=== PATIENT | male | born 1960 | race Caucasian/White ===

== ENCOUNTER → 2023-02-02 | Day surgery (SDC) | payer OTHER ==
[2023-01-31 15:19] LABS: BASOPHILS # (AUTO) 0.1 (0.0-0.1); BASOPHILS % 0.4 % (0.0-1.0); EOSINOPHILS % 0.2 % (0.0-6.0); HEMATOCRIT 33.4 % (38.2-49.6); HEMOGLOBIN 10.3 g/dL (14.0-18.0); LYMPHOCYTES # (AUTO) 1.2 (1.0-3.2); LYMPHOCYTES % 9.5 % (18.0-39.1); MEAN CORPUSCULAR HGB CONC 30.8 g/dL (31-35); MEAN CORPUSCULAR VOLUME 87.7 fL (81-99); MONOCYTES # (AUTO) 0.8 (0.2-0.8); MONOCYTES % 6.2 % (4.4-11.3); NEUTROPHILS # (AUTO) 10.2 (2.1-6.9); NEUTROPHILS % 82.7 % (38.7-80.0); PLATELET COUNT 433 x10e3/uL (140-360); RED BLOOD COUNT 3.81 x10e6/uL (4.3-5.7); RED CELL DISTRIBUTION WIDTH 18.9 % (11.7-14.4); WHITE BLOOD COUNT 12.35 x10e3/uL (4.8-10.8)
[2023-01-31 15:34] LABS: ANION GAP 15.5 mmol/L (8-16); CALCIUM 9.8 mg/dL (8.4-10.2); CREATININE, SERUM 1.82 mg/dL (0.72-1.25); POTASSIUM 4.5 mmol/L (3.5-5.1)
[~2023-02-02] MED LIST: AMIODARONE HCL200 MG PO; AMPICILLIN-SUL1.5 GM IV; ATORVASTATIN CA20 MG PO; AUGMENTIN 500-1 EACH PO; BUPIVACAINE HCL 0.5% INJ 30 ML VIAL INJ ONE; CALCITRIOL0.25 MCG PO; CEFAZOLIN SODIUM 2 GM ONE; CLOPIDOGREL75 MG PO; DEXMEDETOMIDINE HCL 2 ML ONE; FARXIGA10 MG PO; FEROSUL325 MG PO; FUROSEMIDE40 MG PO; HUMALOG MI100 UNIT/2 SQ; HUMULIN R100 UNIT/2 INJ; LACTATED RINGER'S 1,000 ML ONE; LIDOCAINE HCL 2% LOCAL INJ 5 ML SDV VIAL INJ ONE; METOPROLOL SUCC50 MG PO; MULTI-VITAMIN1 EACH PO; PROPOFOL IV EMULSION 10 MG/ML 20 ML VIAL ONE; SODIUM CHLORIDE 0.9% 250ML 0 ML ONE; SPIRONOLACTONE25 MG PO; TRESIBA100 UNIT/1 PO; TRULICITY0.75 MG/0. SC; ULORIC40 MG PO; VENOFER100 MG/5 M PO; VITAMIN D3 COM1 EACH PO; Vancomycin IV 1 GM VIAL ONE; WARFARIN SODIUM3 MG PO
[2023-02-02 10:53] LABS: INR 1.29; PROTHROMBIN TIME 16.9 seconds (11.9-14.5)
[2023-02-02 10:54] LABS: PARTIAL THROMBOPLASTIN TIME 30.8 seconds (23.8-35.5)
[2023-02-02 13:44] VITALS: TEMP 97.8
[2023-02-02 13:55] VITALS: BP 124/64; PULSE 69; RESP 16; O2SAT 99
== END | disposition home or self-care (01) ==
LOC: OR 09:54
PROVIDERS: ATTEND Podiatrist Foot & Ankle Surgery
DX: I96 Gangrene, not elsewhere classified (principal); E11.22 Type 2 diabetes mellitus with diabetic chronic kidney disease; N18.9 Chronic kidney disease, unspecified; D64.9 Anemia, unspecified; I25.10 Atherosclerotic heart disease of native coronary artery without angina pectoris; I48.91 Unspecified atrial fibrillation; Z88.1 Allergy status to other antibiotic agents; Z01.810 Encounter for preprocedural cardiovascular examination; Z01.812 Encounter for preprocedural laboratory examination; Z01.818 Encounter for other preprocedural examination; Z79.02 Long term (current) use of antithrombotics/antiplatelets; Z79.4 Long term (current) use of insulin; Z79.85 Long-term (current) use of injectable non-insulin antidiabetic drugs; Z79.84 Long term (current) use of oral hypoglycemic drugs; Z79.899 Other long term (current) drug therapy
CPT/HCPCS: 28805; 36415 ×2; 71046; 80048; 85025; 85610; 85730; 87071; 87075; 87186; 87205; 88304; 88311; 93005; J2001; J2704; J3370; J7121; J7050